=== PATIENT | male | born 2000 ===

== ENCOUNTER 2018-05-23 20:11 | Emergency (ER) | payer OTHER ==
[2018-05-23 20:27] VITALS: BP 142/92
[2018-05-23] MEDS ORDERED: Sulfamethox/Trimethoprim DS 800/160* TAB PO ONE (20:56)
--- NOTE | 2018-05-23 21:02 | UC ---
Complaint Female HPI - HPI Summary HPI Summary: TRANS MALE: TODAY STARTED W/ MILD DYSURIA, HEMATURIA AND SLIGHT PELVIC CRAMPING. DECLINES HCG. - History Of Current Complaint Chief Complaint: UCGU Stated Complaint: URINARY SYMPTOMS Time Seen by Provider: 05/23/18 20:50 Hx Obtained From: Patient ?: No Onset/Duration: Sudden Onset Severity Initially: Mild Severity Currently: Mild Pain Intensity: 3 Pain Scale Used: 0-10 Numeric Radiates to: NONE Aggravating Factor(s): Nothing Alleviating Factor(s): Nothing Associated Signs And Symptoms: Positive: Negative - Allergies/Home Medications Allergies/Adverse Reactions: Allergies Allergy/AdvReac Type Severity Reaction Status Date / Time No Known Allergies Allergy Verified 05/23/18 20:27 Home Medications: Home Medications Sertraline* [Zoloft*] 100 mg PO DAILY 05/23/18 [History Confirmed 05/23/18] Testosterone Injection* WEEKLY 05/23/18 [History] PMH/Surg Hx/FS Hx/Imm Hx - Additional Past Medical History Additional PMH: TRANSITIONING/HORMONE REPLACEMENT Previously Healthy: Yes - Surgical History Surgical History: None - Social History Alcohol Use: None Substance Use Type: None Smoking Status (MU): Never Smoked Tobacco Review of Systems All Other Systems Reviewed And Are Negative: Yes Constitutional: Positive: Negative Gastrointestinal: Positive: Negative Genitourinary: Positive: Dysuria, Hematuria. Negative: Frequency, Urgency Physical Exam Triage Information Reviewed: Yes Appearance: Well-Appearing Vital Signs: Initial Vital Signs Temp 99 F 05/23/18 20:23 Pulse 86 05/23/18 20:23 Resp 16 05/23/18 20:23 BP 142/92 05/23/18 20:23 Pulse Ox 97 05/23/18 20:23 Vital Signs Reviewed: Yes Respiratory Exam: Normal Cardiovascular Exam: Normal Abdomen Description: Negative: CVA Tenderness (R), CVA Tenderness (L) Skin Exam: Normal Complaint Female Dx - Course Course Of Treatment: uti w/ hematuria. will tx w/ antibx. no s/sx of pyelo. declined hcg and sti testing. advised to return if worsening and no improvement. - Differential Dx/Diagnosis Differential Diagnosis/HQI/PQRI: Sexually Transmitted Disease, Urinary Tract Infection Provider Diagnoses: UTI; HEMATURIA Discharge - Sign-Out/Discharge Documenting (check all that apply): Patient Departure All imaging exams completed and their final reports reviewed: No Studies - Discharge Plan Condition: Good Disposition: HOME Prescriptions: Sulfamethox/Trimethoprim DS* [Bactrim DS 800/160 TAB*] 1 tab PO DAILY #4 tab Patient Education Materials: Dysuria (ED) Referrals: No Primary Care Phys,NOPCP [Primary Care Provider] - Additional Instructions: IF NOT IMPROVED PLEASE FOLLOW UP WITH US. - Billing Disposition and Condition Condition: GOOD Disposition: Home
--- NOTE | 2018-05-26 16:04 | UC ---
- Progress Note Progress Note: culture report returned--e.coli not sensitive to Bactrim will change to macrobid Discharge - Sign-Out/Discharge Documenting (check all that apply): Post-Discharge Follow Up All imaging exams completed and their final reports reviewed: No Studies - Discharge Plan Condition: Good Disposition: HOME Prescriptions: Nitrofurantoin Monohyd/M-Cryst [Macrobid 100 mg Capsule] 100 mg PO BID 10 Days # 20 cap Patient Education Materials: Dysuria (ED) Referrals: No Primary Care Phys,NOPCP [Primary Care Provider] - Additional Instructions: IF NOT IMPROVED PLEASE FOLLOW UP WITH US. - Billing Disposition and Condition Condition: GOOD Disposition: Home
== END 2018-05-23 21:17 | disposition home or self-care (01) ==
LOC: UCEAST 20:11
DX: N39.0 Urinary tract infection, site not specified (principal); R31.9 Hematuria, unspecified
CPT/HCPCS: 81003; 87077; 87086; 87186; 99202; A9270-GY; G0463